=== PATIENT | female | born 1950 | race Caucasian/White ===

== ENCOUNTER 2017-09-26 19:54 | Emergency (ER) | payer SELFPAY ==
[~2017-09-26] VITALS: Ht 162.6 cm; Wt 70.5 kg
[2017-09-26] MEDS ORDERED: LEVO100 PO (20:13)
[2017-09-26 20:47] LABS: BASOPHILS % (AUTO) 0.2 % (0.0-2.0); HEMATOCRIT 31.3 % (36-46); HEMOGLOBIN 11.3 g/dL (12.0-16.0); LYMPHOCYTES # (AUTO) 1.4 K/uL (1.0-4.8); MEAN CORPUSCULAR HEMOGLOBIN 35.8 pg (26.0-34.0); MEAN CORPUSCULAR VOLUME 99 fL (80-100); MONOCYTES # (AUTO) 0.7 K/uL (0.1-1.0); MONOCYTES % (AUTO) 12.1 % (2.0-9.0); NEUTROPHILS # (AUTO) 3.3 K/uL (1.8-7.7); NEUTROPHILS % (AUTO) 60.7 % (40.0-70.0); PLATELET COUNT (AUTO) 256 K/uL (150-450); RED BLOOD CELL COUNT(AUTO) 3.15 MIL/uL (4.00-5.20); RED CELL DISTRIBUTION WIDTH 15.3 % (11.5-14.5)
[2017-09-26 20:56] LABS: APPEARANCE,URINE CLOUDY (CLEAR); GLUCOSE, URINE (UA) NEGATIVE (NEGATIVE); KETONES,URINE 40 mg/dL (NEGATIVE); LEUKOCYTE ESTERASE ,URINE SMALL (NEGATIVE); NITRATE,URINE NEGATIVE (NEGATIVE); OCCULT BLOOD,URINE TRACE (NEGATIVE); PROTEIN,URINE POS 1+ (NEGATIVE); UROBILINOGEN,URINE 0.2 mg/dL (<=1.0)
[2017-09-26 20:56] LABS: CHLORIDE 104 mmol/L (98-107); POTASSIUM 3.8 mmol/L (3.5-5.1); SODIUM SERUM 141 mmol/L (136-145)
[2017-09-26 20:57] LABS: ANION GAP 6 mmol/L (8-16); CALCIUM, TOTAL 8.5 mg/dL (8.8-10.5); CARBON DIOXIDE 31 mmol/L (22-29); CREATININE 0.72 mg/dL (0.60-1.30); GLOMERULAR FILTR. RATE CALC > 60 mL/min (>60); GLUCOSE,RANDOM 109 mg/dL (70-110); UREA NITROGEN, BLOOD 10 mg/dL (7-18)
[2017-09-26 21:01] LABS: BILIRUBIN,URINE PRELIM. POSITIVE (NEGATIVE)
[2017-09-26 21:02] LABS: ALANINE AMINOTRANSFERASE 24 U/L (12-78); ALKALINE PHOSPHATASE 62 U/L (46-116); ASPARTATE AMINOTRANSFERASE 17 U/L (15-37); BILIRUBIN,TOTAL 0.9 mg/dL (0.1-1.0); LIPASE 64 U/L (73-393); TOTAL PROTEIN, SERUM 6.4 g/dL (6.4-8.2)
[2017-09-26 21:08] LABS: RBC,URINE 0-2 /HPF (0-2)
[2017-09-26 21:09] LABS: BACTERIA,URINE Few /HPF (None Seen); CALCIUM OXALATE CRYSTALS,UR Many /LPF (None Seen); MUCUS,URINE Many LPF (None Seen); SQUAMOUS EPITHELIAL CELL,UR Few /LPF (None Seen)
[2017-09-26] MEDS ORDERED: HYOSCYAMINE SULFATE 0.125 MG TAB SL ONE (21:45)
[2017-09-26] MEDS ORDERED: KETOROLAC TROMETHAMINE 60 MG/2 ML VIAL IM ONE (21:45)
[2017-09-26 21:51] VITALS: BP 126/78
== END 2017-09-26 21:55 | disposition home or self-care (01) ==
LOC: EMS 19:55
DX: A08.4 Viral intestinal infection, unspecified (principal); F17.210 Nicotine dependence, cigarettes, uncomplicated; E03.9 Hypothyroidism, unspecified
CPT/HCPCS: 36415; 80053; 81001; 83690; 85025; 87086; 96372; 99284; 99406; J1885

== ENCOUNTER 2018-12-05 11:33 | Emergency (ER) | payer SELFPAY ==
[~2018-12-05] VITALS: Ht 154.9 cm; Wt 70.5 kg
[~2018-12-05 11:33] MED LIST: LEVO100 PO
[2018-12-05] MEDS: IBUPROFEN 800 MG TABLET PO ONE (13:26)
[2018-12-05 14:08] VITALS: BP 128/69
== END 2018-12-05 14:09 | disposition home or self-care (01) ==
LOC: EMS 11:34
DX: K14.8 Other diseases of tongue (principal); K14.6 Glossodynia; E03.9 Hypothyroidism, unspecified; Z87.891 Personal history of nicotine dependence